=== PATIENT | female | born 1965 | race Caucasian/White ===

== ENCOUNTER 2016-07-05 15:41 | Emergency (ER) | payer SELFPAY ==
[~2016-07-05] VITALS: Wt 69.0 kg
[~2016-07-05 15:41] MED LIST: OMEP20CA16
[2016-07-05] MEDS ORDERED: ONDANSETRON (ODT) 4 MG TAB ODT STA (16:41)
[2016-07-05] MEDS ORDERED: ALBUTEROL 0.5% (NEB) 2.5 MG/0.5 ML AMP HHN STA (16:41)
[2016-07-05] MEDS ORDERED: METHYLPREDNISOLONE 125 MG INJ IM ONE (17:00)
--- NOTE | 2016-07-05 17:12 | RADRPT ---
PROCEDURE: XR Chest. CLINICAL INDICATION: Shortness of breath TECHNIQUE: Chest AP portable. COMPARISON: No comparison available. FINDINGS: The mediastinal structures are unremarkable. The heart is normal in size and configuration. The pu lmonary vascularity is normal. The lung gastelum are unremarkable. No consolidation is identified. The pleural spaces are unremarkable. The axial skeleton is unremarkable. IMPRESSION: No active intrathoracic disease. RPTAT: HGDB .Emmanuel Bliss MD, MD Date Time Electronically viewed and signed by .Emmanuel Bliss MD, on 07/05/2016 17:11 .B/
[2016-07-05] MEDS ORDERED: PRED20TA PO (18:37)
[2016-07-05] MEDS ORDERED: AZIT250T94 PO (18:37)
[2016-07-05] MEDS ORDERED: ALBU2.5V3 NEB (18:37)
--- NOTE | 2016-07-05 18:40 | ERD ---
ER Documentation Chief Complaint Date/Time DATE: 07/05/16 TIME: 18:39 Chief Complaint cough and congestion with wheezing for the past 4 days. mild distress HPI This 51-year-old feel persistent coughing and wheezing for last 4 days with productive sputum. She has fevers, chest pain, vomiting, bowel pain. She is using a nebulizer at home and complaining of persistent wheezing. ROS All systems reviewed and are negative except as per history of present illness. Medications Home Meds Active Scripts Albuterol Sulfate* (Albuterol Sulfate* Neb) 0.083%-3 Ml Neb, 2.5 MG NEB Q4 Y for SHORTNESS OF BREATH, #30 EA Prov:THOR KNAPP MD 07/05/16 Prednisone* (Prednisone*) 20 Mg Tab, 60 MG PO DAILY for 6 Days, #15 TAB 60 mg by mouth for 3 days then 40 mg by mouth FOR 3 days. Prov:THOR KNAPP MD 07/05/16 Azithromycin* (Zithromax*) 250 Mg Tablet, 250 MG PO .ZPACK DIRECTED, #6 TAB TAKE 500 MG (2 TABS) THE FIRST DAY THEN 250 MG (1 TAB) DAYS 2-5 Prov:THOR KNAPP MD 07/05/16 Reported Medications Omeprazole* (Omeprazole*) 20 Mg Capsule. 01/28/10 [None] No Conflict Check 07/01/09 Allergies Allergies: Coded Allergies: No Known Allergy (Verified Allergy, Mild, 01/15/10) No Known Drug Allergy (Verified Allergy, Unknown, 01/28/10) PMhx/Soc History of Surgery: Yes ( X 1) Anesthesia Reaction: No Hx Neurological Disorder: No Hx Respiratory Disorders: No Hx Cardiac Disorders: No Hx Psychiatric Problems: Yes (ANXIETY) Hx Miscellaneous Medical Probl: No Hx Alcohol Use: No Hx Substance Use: No Hx Tobacco Use: Yes Smoking Status: Never smoker Physical Exam Vitals Vital Signs Date Time Temp Pulse Resp B/P Pulse Ox O2 Delivery O2 Flow Rate FiO2 07/05/16 16:56 79 18 97 21 07/05/16 15:45 98.9 85 22 139/85 97 Physical Exam Const: [] Alert, not ill-appearing, speaking complete sentences. Head: Atraumatic Eyes: Normal Conjunctiva ENT: Normal External Ears, Nose and Mouth. Neck: Full range of motion..~ No meningismus. Resp: Clear to auscultation bilaterally. Diffuse wheezing without Rales or retractions appreciated. Cardio: Regular rate and rhythm, no murmurs Abd: Soft, non tender, non distended. Normal bowel sounds Skin: No petechiae or rashes Back: No midline or flank tenderness Ext: No cyanosis, or edema Neur: Awake and alert Psych: Normal Mood and Affect Results 24 hrs Current Medications Medications (Trade) Dose Ordered Sig/Megha Route PRN Reason Start Time Stop Time Status Last Admin Dose Admin Methylprednisolone Sodium Succinate (Solu-Medrol) 125 mg ONCE ONCE IM 07/05/16 17:00 07/05/16 17:01 DC 07/05/16 16:50 Albuterol (Proventil 0.5% (Neb)) 10 mg ONCE STAT HHN 07/05/16 16:41 07/05/16 16:43 DC 07/05/16 16:56 Ondansetron HCl (Zofran Odt) 8 mg ONCE STAT ODT 07/05/16 16:41 07/05/16 16:43 DC 07/05/16 16:51 Procedures/MDM Patient was given albuterol 10 mg hand-held nebulizer and Solu-Medrol 125 modems I am. Patient improved wheezing and observation treatment. Chest X-ray 1V Interpreted by me: Soft Tissue: No acute abnormalities Bones: No acute abnormalities Mediastinum/Cardiac Silhouette/Lungs: [No acute abnormalities]. Impression- normal 1 view chest x-ray Patient presents with acute wheezing likely in the setting of URI given the Cough. She'll treated with a prednisone taper, Zithromax and a refill of her albuterol. There is no evidence of hypoxemia, respiratory distress, signs or chest pain, abdominal pain. She'll be discharged home with instructions to follow-up the primary care doctor this week. Return to the ER for new or worsening symptoms.The patient was stable with no new complaints during the ER course. Clinically, there is no current evidence to suggest meningitis, sepsis, acute abdomen, pneumonia, acute coronary syndrome, pulmonary embolism, or any other emergent condition appearing to require further evaluation or hospitalization. The patient should certainly return for any new or worsening symptoms per the aftercare instructions. They should otherwise follow-up with her primary care doctor for reevaluation this week. Departure Diagnosis: Primary Impression: Bronchitis Additional Impression: Asthma Asthma severity: unspecified severity Asthma complication type: uncomplicated Qualified Code: J45.909 - Uncomplicated asthma, unspecified asthma severity Condition: Stable Patient Instructions: Bronchitis With Wheezing (Adult) Additional Instructions: X-ray read as normal. Recheck for new or worsening symptoms or with primary care doctor. THOR KNAPP MD Jul 05, 2016 18:40
== END 2016-07-05 18:46 | disposition home or self-care (01) ==
LOC: FTE 15:41
DX: J20.9 Acute bronchitis, unspecified (principal); J45.901 Unspecified asthma with (acute) exacerbation; R11.10 Vomiting, unspecified
CPT/HCPCS: 71010; 94644; 96372; 99284; J2930

== ENCOUNTER 2016-07-31 23:54 | Emergency (ER) | payer SELFPAY ==
[~2016-07-31] VITALS: Ht 167.6 cm; Wt 75.3 kg
[~2016-07-31 23:54] MED LIST changes: +ALBU2.5V3 NEB; +AZIT250T94 PO; +PRED20TA PO
[2016-07-31 23:58] VITALS: Ht 167.6 cm; Wt 75.3 kg
[2016-08-01] MEDS ORDERED: ALBUTEROL 0.5% (NEB) 2.5 MG/0.5 ML AMP INH STA (01:57)
[2016-08-01] MEDS ORDERED: METHYLPREDNISOLONE 125 MG INJ IM STA (01:57)
[2016-08-01] MEDS ORDERED: IPRATROPIUM (NEB) 0.5 MG/2.5 ML AMP INH STA (01:57)
--- NOTE | 2016-08-01 02:41 | RADRPT ---
PROCEDURE: XR Chest. CLINICAL INDICATION: Shortness of breath. TECHNIQUE: AP Portable chest. COMPARISON: 07/05/2016 FINDINGS: The cardiomediastinal silhouette is normal. The lungs are clear. The osseous structures are unrema rkable. IMPRESSION: No acute findings. RPTAT: HIKT .Jon Galan MD, MD Date Time Electronically viewed and signed by .Jon Galan MD, MD on 08/01/2016 02:41 .T/
[2016-08-01] MEDS ORDERED: LEVALBUTEROL (NEB) 1.25 MG/0.5 ML AMP INH STA (04:04)
[2016-08-01] MEDS ORDERED: PRED20TA PO (05:23)
[2016-08-01] MEDS ORDERED: ALBU8.5H3 INH (05:23)
[2016-08-01] MEDS ORDERED: ALBU2.5V3 NEB (05:23)
[2016-08-01 05:48] VITALS: BP 107/70; PULSE 105; RESP 20
--- NOTE | 2016-08-01 06:07 | ERD ---
ER Documentation Chief Complaint Date/Time DATE: 08/01/16 TIME: 06:04 Chief Complaint cough x 2 days, chest congestion HPI 51-year-old female with no significant past medical history presents the ED complaining of cough that started 2 days ago. Reports that she feels congested and feels like her asthma is exacerbated. States that she was diagnosed with bronchitis with wheezing about 20 days ago and was taking Robitussin, Z-Luis, prednisone with slight relief of her symptoms. Denies any chest pain, pleuritic chest pain, dyspnea on exertion, abdominal pain, nausea, vomiting. States that she tried using her nebulizer machine which slightly relieved her symptoms. Reports that she smokes 3 cigarettes per day. Denies any drug use or alcohol use. ROS All systems reviewed and are negative except as per history of present illness. Medications Home Meds Active Scripts Albuterol Sulfate* (Albuterol Sulfate* Neb) 0.083%-3 Ml Neb, 2.5 MG NEB Q4 Y for SHORTNESS OF BREATH, #30 EA Prov:SAL ORNELAS PA-C 08/01/16 Albuterol Sulfate* (Proair HFA*) 8.5 Gm Hfa.aer.ad, 2 PUFF INH Q4, #1 INHALER Prov:SAL ORNELSA PA-C 08/01/16 Prednisone* (Prednisone*) 20 Mg Tab, 40 MG PO DAILY for 4 Days, TAB Prov:SAL ORNELAS PA-C 08/01/16 Albuterol Sulfate* (Albuterol Sulfate* Neb) 0.083%-3 Ml Neb, 2.5 MG NEB Q4 Y for SHORTNESS OF BREATH, #30 EA Prov:THOR KNAPP MD 07/05/16 Prednisone* (Prednisone*) 20 Mg Tab, 60 MG PO DAILY for 6 Days, #15 TAB 60 mg by mouth for 3 days then 40 mg by mouth FOR 3 days. Prov:THOR KNAPP MD 07/05/16 Azithromycin* (Zithromax*) 250 Mg Tablet, 250 MG PO .CHECO DIRECTED, #6 TAB TAKE 500 MG (2 TABS) THE FIRST DAY THEN 250 MG (1 TAB) DAYS 2-5 Prov:THOR KNAPP MD 07/05/16 Reported Medications Omeprazole* (Omeprazole*) 20 Mg Capsule.dr 01/28/10 [None] No Conflict Check 07/01/09 Allergies Allergies: Coded Allergies: No Known Allergy (Verified Allergy, Mild, 01/15/10) No Known Drug Allergy (Verified Allergy, Unknown, 01/28/10) PMhx/Soc History of Surgery: Yes (f) Anesthesia Reaction: No Hx Neurological Disorder: No Hx Respiratory Disorders: Yes (bronchitis, asthma) Hx Cardiac Disorders: No Hx Psychiatric Problems: Yes (ANXIETY) Hx Miscellaneous Medical Probl: No Hx Alcohol Use: No Hx Substance Use: No Hx Tobacco Use: Yes Smoking Status: Current every day smoker Physical Exam Vitals Vital Signs Date Time Temp Pulse Resp B/P Pulse Ox O2 Delivery O2 Flow Rate FiO2 08/01/16 05:48 105 20 107/70 93 Room Air 08/01/16 04:15 92 28 95 21 08/01/16 02:20 95 32 92 21 07/31/16 23:58 98.9 97 20 168/90 97 Physical Exam Const: Cik-uqw-ozuywbsbn, well-nourished. In no acute distress. Head: Atraumatic, normocephalic Eyes: Normal Conjunctiva without injection. No purulent discharge. PERRL. EOMI ENT: Normal external ear. Ear canal without erythema. Tympanic membrane pearly hodges without effusion or bulging. Nasal canal clear with normal turbinates. Moist oropharynx without tonsillar exudates. Non-erythematous pharynx. Uvula midline. No drooling. No trismus. Neck: Full range of motion. No meningismus. No cervical lymphadenopathy. Resp: Inspiratory and expiratory wheezing noted bilaterally. No rhonchi, rales , or crackles. No accessory muscle use. No retractions. Cardio: Regular rate and rhythm. No murmurs, rubs or gallops. Abd: Soft, non tender, non distended. Normal bowel sounds. No palpable masses. No rebound tenderness. No guarding. Skin: No petechiae or rashes Back: No midline tenderness. No CVA tenderness. Ext: No cyanosis, or edema. Neur: Awake and alert. Psych: Normal Mood and Affect Results 24 hrs Current Medications Medications (Trade) Dose Ordered Sig/Megha Route PRN Reason Start Time Stop Time Status Last Admin Dose Admin Albuterol (Proventil 0.5% (Neb)) 10 mg ONCE STAT INH 08/01/16 01:57 08/01/16 01:59 DC 08/01/16 02:20 Ipratropium [place] (Atrovent 0.02% (Neb)) 1 mg ONCE STAT INH 08/01/16 01:57 08/01/16 01:59 DC 08/01/16 02:20 Methylprednisolone Sodium Succinate (Solu-Medrol) 125 mg ONCE STAT IM 08/01/16 01:57 08/01/16 01:59 DC 08/01/16 02:15 Levalbuterol (Xopenex Neb) 5 mg ONCE STAT INH 08/01/16 04:04 08/01/16 04:05 DC 08/01/16 04:19 Procedures/MDM 51-year-old female with a past medical history of asthma presents to the ED complaining of cough that started 2 days ago associated with wheezing. Patient is afebrile and nontoxic-appearing. Patient has a pulse oximetry of 97%. Since patient has inspiratory and expiratory wheezing noted, chest x-ray was ordered to further evaluate patient. Patient was given a 10 mg albuterol, 1 mg Atrovent breathing treatment, 125 mg IM solumedrol treatment here in the ED with improvement. PROCEDURE: XR Chest. CLINICAL INDICATION: Shortness of breath. TECHNIQUE: AP Portable chest. COMPARISON: 07/05/2016 FINDINGS: The cardiomediastinal silhouette is normal. The lungs are clear. The osseous structures are unremarkable. IMPRESSION: No acute findings. RPTAT: HIKT .Jon Galan MD, MD Date Time Electronically viewed and signed by .Jon Galan MD, on 08/01/2016 02:41 Patient is afebrile and non-toxic appearing. Patient is hemodynamically stable. Patient has a normal pulse oximetry. Patient likely has an asthma exacerbation. Low suspicion for pneumonia, pulmonary embolism, acute TN, cardiac tamponade, pleurisy, sinusitis, peritonsillar abscess, mastoiditis, retropharyngeal abscess , meningitis, sepsis or other emergent conditions. Patient's respiratory status has stabilized while in the department and is appropriate for outpatient work up. Exam and work up not consistent w/ impending respiratory failure or cardiovascular collapse. Discharge medications: Albuterol nebulizer solution, Pro-air, Prednisone Follow up with primary care physician in 1-2 days. Instructed patient to return to the ED sooner for any worsening symptoms. Patient's questions were answered. Patient understood and agreed with discharge plan. Patient discharged stable. Departure Diagnosis: Primary Impression: URI (upper respiratory infection) URI type: unspecified URI Qualified Code: J06.9 - Upper respiratory tract infection, unspecified type Condition: Stable Patient Instructions: Asthma, Acute (Adult), Uri, Viral W/ Wheezing (Adult) Referrals: COMMUNITY CLINICS YOU HAVE RECEIVED A MEDICAL SCREENING EXAM AND THE RESULTS INDICATE THAT YOU DO NOT HAVE A CONDITION THAT REQUIRES URGENT TREATMENT IN THE EMERGENCY DEPARTMENT. FURTHER EVALUATION AND TREATMENT OF YOUR CONDITION CAN WAIT UNTIL YOU ARE SEEN IN YOUR DOCTORS OFFICE WITHIN THE NEXT 1-2 DAYS. IT IS YOUR RESPONSIBILITY TO MAKE AN APPOINTMENT FOR FOLOW-UP CARE. IF YOU HAVE A PRIMARY DOCTOR --you should call your primary doctor and schedule an appointment IF YOU DO NOT HAVE A PRIMARY DOCTOR YOU CAN CALL OUR PHYSICIAN REFERRAL HOTLINE AT IF YOU CAN NOT AFFORD TO SEE A PHYSICIAN YOU CAN CHOSE FROM THE FOLLOWING [facility] [address] [facility]. [facility] [address]. [facility] [address] [facility] [facility] [address] [facility] [facility]. [facility] [address] [facility]. [facility]. [address] [facility]. [facility] YOU HAVE RECEIVED A MEDICAL SCREENING EXAM AND THE RESULTS INDICATE THAT YOU DO NOT HAVE A CONDITION THAT REQUIRES URGENT TREATMENT IN THE EMERGENCY DEPARTMENT. FURTHER EVALUATION AND TREATMENT OF YOUR CONDITION CAN WAIT UNTIL YOU ARE SEEN IN YOUR DOCTORS OFFICE WITHIN THE NEXT 1-2 DAYS. IT IS YOUR RESPONSIBILITY TO MAKE AN APPOINTMENT FOR FOLOW-UP CARE. IF YOU HAVE A PRIMARY DOCTOR --you should call your primary doctor and schedule and appointment IF YOU DO NOT HAVE A PRIMARY DOCTOR YOU CAN CALL OUR PHYSICIAN REFERRAL HOTLINE AT . IF YOU CAN NOT AFFORD TO SEE A PHYSICIAN YOU CAN CHOSE FROM THE FOLLOWING [facility] INSTITUTIONS: [facility] [address] [place] [address] [facility] [address] [place] [address] [facility] [address] [place] [address] [facility] Additional Instructions: Visite a go vernell vieira para un EXAMEN.Regrese a estas instalaciones si no se mejora priti esperbamos o priti le dijimos. SAL ORNELAS PA-C Aug 01, 2016 06:07
== END 2016-08-01 05:49 | disposition home or self-care (01) ==
LOC: FTE 23:54
DX: J06.9 Acute upper respiratory infection, unspecified (principal); J45.909 Unspecified asthma, uncomplicated; F17.210 Nicotine dependence, cigarettes, uncomplicated
CPT/HCPCS: 71010; 94644; 96372; 99284; J2930

== ENCOUNTER 2018-02-03 15:34 | Emergency (ER) | END 2018-02-03 20:50 | disposition home or self-care (01) ==

== ENCOUNTER 2018-04-29 10:30 | Emergency (ER) | END 2018-04-29 13:52 | disposition home or self-care (01) ==